=== PATIENT | male | born 1960 | race African-American/Black ===

== ENCOUNTER 2021-03-06 17:58 | Emergency (ER) | payer OTHER, SELFPAY ==
[2021-03-06] MEDS ORDERED: predniSONE 20 MG TAB ONE (19:33)
== END 2021-03-06 20:48 | disposition left against medical advice (07) ==
LOC: MADERS 17:58
DX: L30.9 Dermatitis, unspecified (principal); F17.210 Nicotine dependence, cigarettes, uncomplicated
CPT/HCPCS: 99283; J7512